=== PATIENT | female | born 1985 | race African-American/Black ===

== ENCOUNTER 2018-01-11 15:41 | Emergency (ER) | payer OTHER ==
[~2018-01-11] VITALS: Ht 154.9 cm; Wt 75.9 kg
[2018-01-11] MEDS ORDERED: DIAZ2TAB3 PO (15:44)
[2018-01-11] MEDS ORDERED: PERCT PO (15:44)
[2018-01-11] MEDS ORDERED: SODIUM CHLORIDE 0.9% 1,000 ML IV ONE (17:30)
[2018-01-11] MEDS ORDERED: ONDANSETRON HCL 4 MG/2 ML VIAL IVP ONE (17:30)
[2018-01-11 18:14] LABS: ANION GAP 10 mmol/L (8-16); CALCIUM, TOTAL 9.3 mg/dL (8.8-10.5); CARBON DIOXIDE 28 mmol/L (22-29); CHLORIDE 100 mmol/L (98-107); CREATININE 0.82 mg/dL (0.60-1.30); GLOMERULAR FILTR. RATE CALC > 60 mL/min (>60); GLUCOSE,RANDOM 99 mg/dL (70-110); POTASSIUM 4.5 mmol/L (3.5-5.1); SODIUM SERUM 138 mmol/L (136-145); UREA NITROGEN, BLOOD 22 mg/dL (7-18)
[2018-01-11 18:18] LABS: ALANINE AMINOTRANSFERASE 19 U/L (12-78); ALKALINE PHOSPHATASE 125 U/L (46-116); ASPARTATE AMINOTRANSFERASE 28 U/L (15-37); BILIRUBIN,TOTAL 0.4 mg/dL (0.1-1.0)
[2018-01-11 18:21] LABS: BASOPHILS % (AUTO) 0.4 % (0.0-2.0); EOSINOPHILS % (AUTO) 0.1 % (1.0-6.0); HEMATOCRIT 40.5 % (36-46); HEMOGLOBIN 13.4 g/dL (12.0-16.0); LYMPHOCYTES # (AUTO) 1.3 K/uL (1.0-4.8); MEAN CORPUSCULAR HEMOGLOBIN 26.8 pg (26.0-34.0); MEAN CORPUSCULAR HGB CONC 33.1 G/dL (31.0-37.0); MEAN CORPUSCULAR VOLUME 81 fL (80-100); MONOCYTES # (AUTO) 0.4 K/uL (0.1-1.0); MONOCYTES % (AUTO) 4.4 % (2.0-9.0); NEUTROPHILS # (AUTO) 7.6 K/uL (1.8-7.7); NEUTROPHILS % (AUTO) 81.1 % (40.0-70.0); PLATELET COUNT (AUTO) 326 K/uL (150-450); RED CELL DISTRIBUTION WIDTH 15.9 % (11.5-14.5)
[2018-01-11] MEDS ORDERED: KETOROLAC TROMETHAMINE 30 MG/ML VIAL IVP ONE (19:15)
[2018-01-11] MEDS ORDERED: HALOPERIDOL LACTATE 5 MG/ML VIAL IVP ONE (19:15)
[2018-01-11 21:42] VITALS: BP 102/71
== END 2018-01-11 21:43 | disposition home or self-care (01) ==
LOC: EMS 15:43
DX: R11.2 Nausea with vomiting, unspecified (principal); R10.84 Generalized abdominal pain; F12.10 Cannabis abuse, uncomplicated; Z79.899 Other long term (current) drug therapy; Z87.19 Personal history of other diseases of the digestive system
CPT/HCPCS: 36415; 80053; 81025; 85025; 96361; 96374; 96375; 99284; J1630; J1885; J2405; J7030

== ENCOUNTER 2018-03-11 10:58 | Emergency (ER) | payer OTHER ==
[~2018-03-11] VITALS: Ht 165.1 cm; Wt 75.0 kg
[~2018-03-11 10:58] MED LIST: DIAZ2TAB3 PO; PERCT PO
[2018-03-11] MEDS ORDERED: SODIUM CHLORIDE 0.9% 1,000 ML IV ONE (12:06)
[2018-03-11] MEDS ORDERED: PANTOPRAZOLE SODIUM 40 MG/VIAL IVP ONE (12:15)
[2018-03-11] MEDS ORDERED: ONDANSETRON HCL 4 MG/2 ML VIAL IVP ONE ×2 (12:15→14:15)
[2018-03-11 12:19] LABS: BASOPHILS % (AUTO) 0.5 % (0.0-2.0); EOSINOPHILS % (AUTO) 0 % (1.0-6.0); HEMATOCRIT 34.1 % (36-46); HEMOGLOBIN 11.3 g/dL (12.0-16.0); LYMPHOCYTES # (AUTO) 0.9 K/uL (1.0-4.8); MEAN CORPUSCULAR HEMOGLOBIN 25.8 pg (26.0-34.0); MEAN CORPUSCULAR VOLUME 78 fL (80-100); MONOCYTES # (AUTO) 0.4 K/uL (0.1-1.0); MONOCYTES % (AUTO) 2.7 % (2.0-9.0); NEUTROPHILS # (AUTO) 13.5 K/uL (1.8-7.7); PLATELET COUNT (AUTO) 465 K/uL (150-450); RED BLOOD CELL COUNT(AUTO) 4.37 MIL/uL (4.00-5.20); RED CELL DISTRIBUTION WIDTH 15.2 % (11.5-14.5)
[2018-03-11 12:26] LABS: NEUTROPHILS % (AUTO) 90.8 % (40.0-70.0)
[2018-03-11 12:29] LABS: ANION GAP 10 mmol/L (8-16); CALCIUM, TOTAL 8.8 mg/dL (8.8-10.5); CARBON DIOXIDE 25 mmol/L (22-29); CHLORIDE 103 mmol/L (98-107); CREATININE 0.67 mg/dL (0.60-1.30); GLOMERULAR FILTR. RATE CALC > 60 mL/min (>60); GLUCOSE,RANDOM 129 mg/dL (70-110); POTASSIUM 3.5 mmol/L (3.5-5.1); SODIUM SERUM 138 mmol/L (136-145); UREA NITROGEN, BLOOD 15 mg/dL (7-18)
[2018-03-11 12:35] LABS: ALANINE AMINOTRANSFERASE 39 U/L (12-78); ALBUMIN 3.8 g/dL (3.4-5.0); ALKALINE PHOSPHATASE 134 U/L (46-116); ASPARTATE AMINOTRANSFERASE 21 U/L (15-37); BILIRUBIN,TOTAL 0.2 mg/dL (0.1-1.0); LIPASE 49 U/L (73-393)
[2018-03-11] MEDS ORDERED: PB/HYOSCY/ATR/SCOP/LIDO/MAALOX 55 ML BOTTLE PO ONE (14:00)
[2018-03-11 15:31] VITALS: BP 131/83
[2018-03-11 15:35] LABS: APPEARANCE,URINE CLEAR (CLEAR); BILIRUBIN,URINE NEGATIVE (NEGATIVE); GLUCOSE, URINE (UA) NEGATIVE (NEGATIVE); KETONES,URINE 40 mg/dL (NEGATIVE); LEUKOCYTE ESTERASE ,URINE NEGATIVE (NEGATIVE); NITRATE,URINE NEGATIVE (NEGATIVE); OCCULT BLOOD,URINE NEGATIVE (NEGATIVE); PH,URINE 6.5 (5.0-8.0); PROTEIN,URINE TRACE (NEGATIVE); UROBILINOGEN,URINE 0.2 mg/dL (<=1.0)
== END 2018-03-11 15:53 | disposition home or self-care (01) ==
LOC: EMS 10:59
DX: G43.A0 Cyclical vomiting, in migraine, not intractable (principal); K22.4 Dyskinesia of esophagus; F12.90 Cannabis use, unspecified, uncomplicated; R10.816 Epigastric abdominal tenderness
CPT/HCPCS: 36415; 80053; 81003; 83690; 85025; 93005; 96361; 96374; 96375; 96376; 99285; C9113; J2405; J7030; Z7610

== ENCOUNTER 2024-07-08 05:08 | Emergency (ER) | payer OTHER ==
[~2024-07-08] VITALS: Ht 154.9 cm; Wt 70.0 kg
[~2024-07-08 05:08] MED LIST changes: -DIAZ2TAB3 PO
[2024-07-08 05:33] VITALS: TEMP 98.3
[2024-07-08] MEDS: DiphenhydrAMINE HCL 50 MG/ML VIAL IVP ONE (06:25)
[2024-07-08] MEDS: SODIUM CHLORIDE 0.9% 1,000 ML IV ONE ×2 (06:25→10:19)
[2024-07-08] MEDS: MORPHINE SULFATE 2 MG/ML SYRINGE IVP ONE (06:26)
[2024-07-08] MEDS: PANTOPRAZOLE SODIUM 40 MG/VIAL IVP ONE (06:26)
[2024-07-08] MEDS: ONDANSETRON HCL 4 MG/2 ML VIAL IVP ONE (06:26)
[2024-07-08 06:56] LABS: ANION GAP 15 mmol/L (8-16); CALCIUM, TOTAL 9.3 mg/dL (8.8-10.5); CARBON DIOXIDE 24 mmol/L (22-29); CHLORIDE 101 mmol/L (98-107); CREATININE 0.73 mg/dL (0.60-1.30); GLOMERULAR FILTR. RATE CALC > 60 mL/min (>60); GLUCOSE,RANDOM 149 mg/dL (70-110); POTASSIUM 3.4 mmol/L (3.5-5.1); SODIUM SERUM 140 mmol/L (136-145); UREA NITROGEN, BLOOD 19 mg/dL (7-18)
[2024-07-08 07:07] LABS: HCG,QUANTITATIVE 1 mIU/mL (0-6); LIPASE 17 U/L (16-77)
[2024-07-08] MEDS: HALOPERIDOL LACTATE 5 MG/ML VIAL IVP ONE ×2 (07:20→09:35)
[2024-07-08] MEDS: MAG HYDROX/ALUMINUM HYD/SIMETH ES 30 ML SUSPENSION UDCUP PO ONE (07:25)
[2024-07-08 08:09] LABS: HEMATOCRIT 39.2 % (36-46); HEMOGLOBIN 12.7 g/dL (12.0-16.0); MEAN CORPUSCULAR HEMOGLOBIN 26.2 pg (26.0-34.0); MEAN CORPUSCULAR HGB CONC 32.2 G/dL (31.0-37.0); MEAN CORPUSCULAR VOLUME 81 fL (80-100); PLATELET COUNT (AUTO) 397 K/uL (150-450); RED BLOOD CELL COUNT(AUTO) 4.83 MIL/uL (4.00-5.20); RED CELL DISTRIBUTION WIDTH 26.8 % (11.5-14.5); WHITE BLOOD COUNT (AUTO) 16.5 K/uL (4.5-11.0)
[2024-07-08 08:39] LABS: BAND NEUTROPHILS % (MANUAL) 0 % (0-5)
[2024-07-08 08:40] LABS: LYMPHOCYTES % (MANUAL) 3 % (22-44); MONOCYTES % (MANUAL) 2 % (2-9); SEGMENTED NEUTROPHILS % 95 % (40-70); TOTAL CELLS COUNTED 100
[2024-07-08 08:41] LABS: RBC MORPHOLOGY COMMENT ABNORMAL RBC MORPH
[2024-07-08 09:26] LABS: ALANINE AMINOTRANSFERASE 21 U/L (12-78); ALBUMIN 4.7 g/dL (3.4-5.0); ALKALINE PHOSPHATASE 118 U/L (46-116); ASPARTATE AMINOTRANSFERASE 21 U/L (15-37); BILIRUBIN,TOTAL 0.3 mg/dL (0.1-1.0); TOTAL PROTEIN, SERUM 8.4 g/dL (6.4-8.2)
[2024-07-08 11:30] LABS: APPEARANCE,URINE CLEAR (CLEAR); BILIRUBIN,URINE NEGATIVE (NEGATIVE); COLOR,URINE YELLOW (YELLOW); GLUCOSE, URINE (UA) TRACE mg/dL (NEGATIVE); KETONES,URINE 80-100 mg/dL (NEGATIVE); LEUKOCYTE ESTERASE ,URINE NEGATIVE (NEGATIVE); NITRATE,URINE NEGATIVE (NEGATIVE); OCCULT BLOOD,URINE TRACE (NEGATIVE); PH,URINE 6.5 (5.0-8.0); PROTEIN,URINE >600,SEE CONFIRM mg/dL (NEGATIVE); SPECIFIC GRAVITIY, URINE 1.032 (1.003-1.030); UROBILINOGEN,URINE <=1.0 mg/dL (<=1.0)
[2024-07-08 11:48] LABS: SULFOSALICYLIC ACID,URINE 3+ (Negative)
[2024-07-08 11:49] LABS: BACTERIA,URINE Many /HPF (None Seen); RBC,URINE 0-2 /HPF (0-2); SQUAMOUS EPITHELIAL CELL,UR Many /LPF (None Seen); WBC,URINE None Seen /HPF (0-5)
[2024-07-08] MEDS ORDERED: NIFE-141 PO (11:51)
[2024-07-08] MEDS: CloNIDine HCL 0.1 MG TABLET PO ONE (12:21)
[2024-07-08] MEDS: KETOROLAC TROMETHAMINE 30 MG/ML VIAL IVP ONE (12:38)
[2024-07-08] MEDS: NIFEdipine 30 MG ER TABLET PO ONE (13:17)
[2024-07-08 14:01] VITALS: BP 142/92; PULSE 69; RESP 18
== END 2024-07-08 15:48 | disposition left against medical advice (07) ==
LOC: EMS 05:09
DX: O14.95 Unspecified pre-eclampsia, complicating the puerperium (principal); F12.90 Cannabis use, unspecified, uncomplicated; Z98.890 Other specified postprocedural states
CPT/HCPCS: 80048; 80076; 81001; 83690; 84702; 85025; 36415; 87086; 87186; 74176; 99285; 96361; 96376; 96374; 96375; J1200; J1630; J1885; J2270; J2405; C9113; J7030; 81002

== ENCOUNTER 2024-10-22 20:51 | Emergency (ER) | payer OTHER ==
[~2024-10-22] VITALS: Ht 154.9 cm; Wt 63.6 kg
[~2024-10-22 20:51] MED LIST changes: +NIFE-141 PO; -PERCT PO
[2024-10-22 21:03] VITALS: TEMP 97.7
[2024-10-22] MEDS: SODIUM CHLORIDE 0.9% 1,000 ML IV ONE (21:33)
[2024-10-22] MEDS: DiphenhydrAMINE HCL 50 MG/ML VIAL IVP ONE (21:33)
[2024-10-22 21:57] LABS: BASOPHILS % (AUTO) 0.3 % (0.0-2.0); EOSINOPHILS % (AUTO) 0 % (1.0-6.0); HEMATOCRIT 37.2 % (36-46); HEMOGLOBIN 11.9 g/dL (12.0-16.0); LYMPHOCYTES # (AUTO) 1.5 K/uL (1.0-4.8); LYMPHOCYTES % (AUTO) 10.7 % (22.0-44.0); MEAN CORPUSCULAR HEMOGLOBIN 27.2 pg (26.0-34.0); MEAN CORPUSCULAR HGB CONC 31.9 G/dL (31.0-37.0); MEAN CORPUSCULAR VOLUME 85 fL (80-100); MONOCYTES # (AUTO) 0.6 K/uL (0.1-1.0); MONOCYTES % (AUTO) 4.6 % (2.0-9.0); NEUTROPHILS # (AUTO) 11.8 K/uL (1.8-7.7); NEUTROPHILS % (AUTO) 84.4 % (40.0-70.0); PLATELET COUNT (AUTO) 360 K/uL (150-450); RED BLOOD CELL COUNT(AUTO) 4.36 MIL/uL (4.00-5.20); RED CELL DISTRIBUTION WIDTH 17.8 % (11.5-14.5)
[2024-10-22 22:07] LABS: ANION GAP 14 mmol/L (8-16); CALCIUM, TOTAL 8.4 mg/dL (8.8-10.5); CARBON DIOXIDE 24 mmol/L (22-29); CHLORIDE 103 mmol/L (98-107); CREATININE 0.58 mg/dL (0.60-1.30); GLOMERULAR FILTR. RATE CALC > 60 mL/min (>60); GLUCOSE,RANDOM 138 mg/dL (70-110); POTASSIUM 3.5 mmol/L (3.5-5.1); SODIUM SERUM 141 mmol/L (136-145); UREA NITROGEN, BLOOD 16 mg/dL (7-18)
[2024-10-22 22:20] LABS: ALANINE AMINOTRANSFERASE 18 U/L (12-78); ALBUMIN 4.1 g/dL (3.4-5.0); ALKALINE PHOSPHATASE 100 U/L (46-116); ASPARTATE AMINOTRANSFERASE 23 U/L (15-37); BILIRUBIN,TOTAL 0.3 mg/dL (0.1-1.0); HCG,QUANTITATIVE 2 mIU/mL (0-6); LIPASE 30 U/L (16-77); TOTAL PROTEIN, SERUM 7.6 g/dL (6.4-8.2)
[2024-10-22] MEDS: HALOPERIDOL LACTATE 5 MG/ML VIAL IVP ONE (22:23)
[2024-10-22] MEDS: FAMOTIDINE 20 MG/2 ML VIAL IVP ONE (22:23)
[2024-10-23 00:25] VITALS: BP 146/87; PULSE 66; RESP 16; O2SAT 100
[2024-10-23] MEDS ORDERED: ONDA-104 PO (01:06)
[2024-10-23] MEDS: ONDANSETRON HCL 4 MG/2 ML VIAL IVP ONE (01:18)
== END 2024-10-23 01:28 | disposition home or self-care (01) ==
LOC: EMS 20:51
DX: R11.2 Nausea with vomiting, unspecified (principal); R10.9 Unspecified abdominal pain; F12.90 Cannabis use, unspecified, uncomplicated; Z87.11 Personal history of peptic ulcer disease
CPT/HCPCS: 99284; 96374; 96375 ×2; 96361; 80048; 80076; 83690; 84702; 85025; 36415; J1200; J3490; J1630; J2405